=== PATIENT | female | born 1975 | race Caucasian/White ===

== ENCOUNTER 2016-10-07 18:27 | Emergency (ER) | payer SELFPAY ==
[2016-10-07] MEDS ORDERED: Penicillin V Potassium 250 MG TAB ONE ×2 (18:45→18:48)
[2016-10-07] MEDS ORDERED: traMADol HCl 50 MG TAB ONE (18:45)
== END 2016-10-07 18:57 | disposition home or self-care (01) ==
LOC: MADERS 18:27
DX: K08.89 Other specified disorders of teeth and supporting structures (principal); F17.210 Nicotine dependence, cigarettes, uncomplicated
CPT/HCPCS: 99282